=== PATIENT | female | born 1985 | race Caucasian/White ===

== ENCOUNTER 2016-05-16 22:54 | Emergency (ER) | payer MEDICAID ==
[2016-05-16 23:48] LABS: BASOPHILS 0.6 % (0.0-2.0); EOSINOPHILS 3.8 % (0-7); HEMATOCRIT 40.9 % (36.0-48.0); IMMATURE GRANULOCYTES 0.3 % (0-5); LYMPHOCYTES 34.8 % (15-50); MCH 34.7 pg (26.0-34.0); MCHC 34.2 g/dL (31.0-37.0); MCV 101.2 fL (80.0-100.0); MEAN PLATELET VOLUME 10.9 fL (7.4-10.4); MONOCYTES 11.4 % (2-11); NEUTROPHILS 49.1 % (40-80); PLATELET COUNT 163 10x3/uL (130-400); RBC 4.04 10x6/uL (4.00-5.40); RDW 14.4 % (11.5-14.5); WBC 6.2 10x3/uL (4.8-10.8)
[2016-05-16 23:52] LABS: HCG SERUM NEGATIVE (NEGATIVE)
== END 2016-05-17 02:00 | disposition home or self-care (01) ==
LOC: D.ER 22:54
PROVIDERS: Emergency Medicine
DX: R59.0 Localized enlarged lymph nodes (principal); F17.200 Nicotine dependence, unspecified, uncomplicated

== ENCOUNTER 2016-06-02 15:03 | Emergency (ER) | payer MEDICAID ==
[2016-06-02 15:35] LABS: APPEARANCE CLEAR (CLEAR); COLOR YELLOW (YELLOW)
[2016-06-02 15:36] LABS: BILIRUBIN NEGATIVE (NEGATIVE); GLUCOSE NEGATIVE (NEGATIVE); KETONE NEGATIVE (NEGATIVE); LEUKOCYTE ESTERASE NEGATIVE (NEGATIVE); NITRITE NEGATIVE (NEGATIVE); PROTEIN NEGATIVE (NEGATIVE); UROBILINOGEN NORMAL (NORMAL)
[2016-06-02 15:38] LABS: BASOPHILS 0.3 % (0-2); EOSINOPHILS 1.3 % (0-7); HEMATOCRIT 42.6 % (36.0-48.0); HEMOGLOBIN 14.9 g/dL (12-16); IMMATURE GRANULOCYTES 0.3 % (0-5); LYMPHOCYTES 16.1 % (15-50); MCH 35.2 pg (26.0-34.0); MCV 100.7 fL (80.0-100.0); MEAN PLATELET VOLUME 10.7 fL (7.4-10.4); MONOCYTES 6.8 % (2-11); NEUTROPHILS 75.2 % (40-80); PLATELET COUNT 160 10x3/uL (130-400); RBC 4.23 10x6/uL (4.00-5.40); RDW 14.2 % (11.5-14.5); WBC 10.5 10x3/uL (4.8-10.8)
[2016-06-02 15:52] LABS: ALBUMIN 3.5 g/dL (3.4-5.0); ALKALINE PHOSPHATASE 85 U/L (46-116); ALT (SGPT) 25 U/L (10-68); BILIRUBIN - TOTAL 0.26 mg/dL (0.2-1.3); CALC OSMOLALITY 272 mosm/kg (275-300); CALCIUM 8.8 mg/dL (8.5-10.1); CARBON DIOXIDE 27.4 mmol/L (21.0-32.0); CHLORIDE - SERUM 103 mmol/L (98-107); CREATININE - SERUM 0.7 mg/dL (0.6-1.3); GLUCOSE 96 mg/dL (74-106); POTASSIUM - SERUM 3.7 mmol/L (3.5-5.1); SODIUM 138 mmol/L (136-145); UREA NITROGEN 4 mg/dL (7-18); eGFR NON AFRICAN AMERICAN > 90 mL/min (90-120)
[2016-06-02 16:10] LABS: HCG SERUM NEGATIVE (NEGATIVE)
== END 2016-06-02 16:38 | disposition home or self-care (01) ==
LOC: D.ER 15:03
PROVIDERS: Emergency Medicine; Physician Assistant
DX: R10.2 Pelvic and perineal pain (principal); F17.200 Nicotine dependence, unspecified, uncomplicated

== ENCOUNTER 2016-09-14 21:41 | Emergency (ER) | payer MEDICAID ==
[2016-09-14 23:29] LABS: APPEARANCE CLEAR (CLEAR); BILIRUBIN NEGATIVE (NEGATIVE); COLOR STRAW (YELLOW); GLUCOSE NEGATIVE (NEGATIVE); KETONE NEGATIVE (NEGATIVE); LEUKOCYTE ESTERASE NEGATIVE (NEGATIVE); NITRITE NEGATIVE (NEGATIVE); PROTEIN NEGATIVE (NEGATIVE); SPECIFIC GRAVITY 1.005 (1.005-1.020); UROBILINOGEN NORMAL (NORMAL)
[2016-09-14 23:34] LABS: ALBUMIN 2.7 g/dL (3.4-5.0); ALKALINE PHOSPHATASE 76 U/L (46-116); ALT (SGPT) 20 U/L (10-68); CALC OSMOLALITY 280 mosm/kg (275-300); CALCIUM 8.1 mg/dL (8.5-10.1); CHLORIDE - SERUM 105 mmol/L (98-107); CREATININE - SERUM 0.6 mg/dL (0.6-1.3); GLUCOSE 90 mg/dL (74-106); PROTEIN - SERUM 5.6 g/dL (6.4-8.2); SODIUM 143 mmol/L (136-145); UREA NITROGEN 2 mg/dL (7-18); eGFR NON AFRICAN AMERICAN > 90 mL/min (90-120)
[2016-09-14 23:43] LABS: POTASSIUM - SERUM 2.7 mmol/L (3.5-5.1)
== END 2016-09-15 01:27 | disposition home or self-care (01) ==
LOC: D.ER 21:41
PROVIDERS: Family Medicine
DX: R60.0 Localized edema (principal); Z87.448 Personal history of other diseases of urinary system; E87.6 Hypokalemia; F17.200 Nicotine dependence, unspecified, uncomplicated

== ENCOUNTER 2017-03-15 15:01 | Emergency (ER) | payer SELFPAY ==
[2017-03-15 15:49] LABS: BASOPHILS 0.3 % (0-2); EOSINOPHILS 1.9 % (0-7); HEMATOCRIT 41.9 % (36.0-48.0); HEMOGLOBIN 14.6 g/dL (12-16); IMMATURE GRANULOCYTES 0.4 % (0-5); LYMPHOCYTES 23.1 % (15-50); MCH 35.4 pg (26.0-34.0); MCHC 34.8 g/dL (31.0-37.0); MCV 101.5 fL (80.0-100.0); MEAN PLATELET VOLUME 10.4 fL (7.4-10.4); MONOCYTES 7.7 % (2-11); NEUTROPHILS 66.6 % (40-80); PLATELET COUNT 181 10x3/uL (130-400); RBC 4.13 10x6/uL (4.00-5.40); RDW 13.7 % (11.5-14.5); WBC 9.9 10x3/uL (4.8-10.8)
[2017-03-15 17:11] LABS: ALBUMIN 3.8 g/dL (3.4-5.0); ALKALINE PHOSPHATASE 84 U/L (46-116); ALT (SGPT) 26 U/L (10-68); CALC OSMOLALITY 275 mosm/kg (275-300); CALCIUM 8.5 mg/dL (8.5-10.1); CARBON DIOXIDE 25.2 mmol/L (21.0-32.0); CHLORIDE - SERUM 105 mmol/L (98-107); CREATININE - SERUM 0.5 mg/dL (0.6-1.3); GLUCOSE 103 mg/dL (74-106); PROTEIN - SERUM 7.3 g/dL (6.4-8.2); SODIUM 140 mmol/L (136-145); UREA NITROGEN 4 mg/dL (7-18); eGFR NON AFRICAN AMERICAN > 90 mL/min (90-120)
[2017-03-15 17:33] LABS: HCG - QUANTITATIVE (MATERNAL) 1979 mIU/mL
[2017-03-15 20:19] LABS: AMYLASE - SERUM 22 U/L (25-115); HCG SERUM POSITIVE (NEGATIVE); LIPASE 179 U/L (73-393)
[2017-03-15 21:56] LABS: APPEARANCE CLEAR (CLEAR); BACTERIA MANY /hpf (NONE SEEN); BILIRUBIN NEGATIVE (NEGATIVE); COLOR YELLOW (YELLOW); EPITHELIAL CELLS OCC /hpf (0-5); GLUCOSE NEGATIVE (NEGATIVE); KETONE NEGATIVE (NEGATIVE); NITRITE POSITIVE (NEGATIVE); PROTEIN NEGATIVE (NEGATIVE); RED CELLS - URINE OCC /hpf (0-5); UROBILINOGEN NORMAL (NORMAL); WHITE CELLS - URINE 0-5 /hpf (0-5)
== END 2017-03-15 22:03 | disposition home or self-care (01) ==
LOC: D.ER 15:01
PROVIDERS: Family Medicine
DX: O26.891 Other specified pregnancy related conditions, first trimester (principal); Z3A.01 Less than 8 weeks gestation of pregnancy; R10.9 Unspecified abdominal pain

== ENCOUNTER 2017-06-07 02:30 | Emergency (ER) | payer MEDICAID ==
[2017-06-07 03:24] LABS: APPEARANCE CLEAR (CLEAR); BILIRUBIN NEGATIVE (NEGATIVE); COLOR YELLOW (YELLOW); GLUCOSE NEGATIVE (NEGATIVE); KETONE NEGATIVE (NEGATIVE); NITRITE NEGATIVE (NEGATIVE); PROTEIN NEGATIVE (NEGATIVE); SPECIFIC GRAVITY 1.005 (1.005-1.020); UROBILINOGEN NORMAL (NORMAL)
== END 2017-06-07 04:09 | disposition home or self-care (01) ==
LOC: D.ER 02:30
PROVIDERS: Family Medicine
DX: O26.892 Other specified pregnancy related conditions, second trimester (principal); Z3A.16 16 weeks gestation of pregnancy; M62.838 Other muscle spasm; S29.012A Strain of muscle and tendon of back wall of thorax, initial encounter; S21.90XA Unspecified open wound of unspecified part of thorax, initial encounter; X58.XXXA Exposure to other specified factors, initial encounter; Y93.9 Activity, unspecified; Y92.9 Unspecified place or not applicable; M54.6 Pain in thoracic spine

== ENCOUNTER 2017-09-25 02:44 | Outpatient (CLI) | payer MEDICAID ==
[2017-09-25 03:09] LABS: APPEARANCE CLEAR (CLEAR); BILIRUBIN NEGATIVE (NEGATIVE); COLOR YELLOW (YELLOW); GLUCOSE NEGATIVE (NEGATIVE); KETONE NEGATIVE (NEGATIVE); NITRITE NEGATIVE (NEGATIVE); PROTEIN NEGATIVE (NEGATIVE); UROBILINOGEN NORMAL (NORMAL)
[2017-10-24 09:45] VITALS: BMI 21.6
== END 2017-09-25 03:27 | disposition home or self-care (01) ==
LOC: D.LDO 02:44
PROVIDERS: Obstetrics & Gynecology
DX: O26.893 Other specified pregnancy related conditions, third trimester (principal); Z3A.32 32 weeks gestation of pregnancy

== ENCOUNTER → 2017-09-28 12:19 | Outpatient (CLI) | payer MEDICAID ==
[2017-10-24 09:45] VITALS: BMI 21.6
== END | disposition home or self-care (01) ==
LOC: D.LDO 12:19
DX: O36.5930 Maternal care for other known or suspected poor fetal growth, third trimester, not applicable or unspecified (principal); Z3A.33 33 weeks gestation of pregnancy

== ENCOUNTER → 2017-10-01 11:26 | Outpatient (CLI) | payer MEDICAID ==
[2017-10-01 13:03] LABS: UDS - AMPHET NEGATIVE QUAL (NEGATIVE); UDS - BARB NEGATIVE QUAL (NEGATIVE); UDS - BENZO NEGATIVE QUAL (NEGATIVE); UDS - COCAINE NEGATIVE QUAL (NEGATIVE); UDS - OPIATE NEGATIVE QUAL (NEGATIVE); UDS - PCP NEGATIVE QUAL (NEGATIVE); UDS - THC NEGATIVE QUAL (NEGATIVE)
[2017-10-01 13:05] LABS: APPEARANCE CLEAR (CLEAR); BILIRUBIN NEGATIVE (NEGATIVE); COLOR STRAW (YELLOW); GLUCOSE NEGATIVE (NEGATIVE); KETONE NEGATIVE (NEGATIVE); NITRITE NEGATIVE (NEGATIVE); PROTEIN NEGATIVE (NEGATIVE); UROBILINOGEN NORMAL (NORMAL)
[2017-10-05 10:24] LABS: CHLAMYDIA TRACHOMATIS, NAA Negative (Negative)
[2017-10-24 09:45] VITALS: BMI 21.6
== END | disposition home or self-care (01) ==
LOC: D.LDO 11:26
PROVIDERS: Obstetrics & Gynecology
DX: O36.5930 Maternal care for other known or suspected poor fetal growth, third trimester, not applicable or unspecified (principal); Z3A.33 33 weeks gestation of pregnancy

== ENCOUNTER → 2017-10-01 20:32 | Outpatient (CLI) | payer MEDICAID ==
[2017-10-24 09:45] VITALS: BMI 21.6
== END | disposition home or self-care (01) ==
LOC: D.LDO 20:32
DX: O26.893 Other specified pregnancy related conditions, third trimester (principal); Z3A.33 33 weeks gestation of pregnancy

== ENCOUNTER → 2017-10-04 15:05 | Outpatient (CLI) | payer MEDICAID ==
[2017-10-24 09:45] VITALS: BMI 21.6
== END | disposition home or self-care (01) ==
LOC: D.LDO 15:05
DX: O36.5930 Maternal care for other known or suspected poor fetal growth, third trimester, not applicable or unspecified (principal); Z3A.34 34 weeks gestation of pregnancy

== ENCOUNTER → 2017-10-07 12:16 | Outpatient (CLI) | payer MEDICAID ==
[2017-10-24 09:45] VITALS: BMI 21.6
== END | disposition home or self-care (01) ==
LOC: D.LDO 12:16
DX: O36.5930 Maternal care for other known or suspected poor fetal growth, third trimester, not applicable or unspecified (principal); Z3A.34 34 weeks gestation of pregnancy

== ENCOUNTER → 2017-10-11 15:02 | Outpatient (CLI) | payer MEDICAID ==
[2017-10-24 09:45] VITALS: BMI 21.6
== END | disposition home or self-care (01) ==
LOC: D.LDO 15:02
DX: O36.5930 Maternal care for other known or suspected poor fetal growth, third trimester, not applicable or unspecified (principal); Z3A.35 35 weeks gestation of pregnancy

== ENCOUNTER → 2017-10-12 17:27 | Outpatient (CLI) | payer MEDICAID ==
[2017-10-24 09:45] VITALS: BMI 21.6
== END | disposition home or self-care (01) ==
LOC: D.LDO 17:27
DX: O36.5930 Maternal care for other known or suspected poor fetal growth, third trimester, not applicable or unspecified (principal); Z3A.35 35 weeks gestation of pregnancy

== ENCOUNTER → 2017-10-14 14:07 | Outpatient (CLI) | payer MEDICAID ==
[2017-10-24 09:45] VITALS: BMI 21.6
== END | disposition home or self-care (01) ==
LOC: D.LDO 14:07
DX: O36.5930 Maternal care for other known or suspected poor fetal growth, third trimester, not applicable or unspecified (principal); Z3A.35 35 weeks gestation of pregnancy

== ENCOUNTER → 2017-10-18 15:45 | Outpatient (CLI) | payer MEDICAID ==
[2017-10-24 09:45] VITALS: BMI 21.6
== END | disposition home or self-care (01) ==
LOC: D.LDO 15:45
DX: O36.5930 Maternal care for other known or suspected poor fetal growth, third trimester, not applicable or unspecified (principal); Z3A.36 36 weeks gestation of pregnancy

== ENCOUNTER → 2017-10-19 14:04 | Outpatient (CLI) | payer MEDICAID ==
[2017-10-24 09:45] VITALS: BMI 21.6
== END | disposition home or self-care (01) ==
LOC: D.LDO 14:04
DX: O26.893 Other specified pregnancy related conditions, third trimester (principal); Z3A.36 36 weeks gestation of pregnancy

== ENCOUNTER 2017-10-24 09:16 | Inpatient (IN) | payer MEDICAID ==
[2017-10-24] VITALS (14 sets, daily range): BP systolic 108–150; BP diastolic 70–95; Ht 165.1 cm; Wt 59.0 kg
[~2017-10-24] VITALS: Ht 165.1 cm; Wt 59.0 kg
[2017-10-24 10:06] LABS: HEMATOCRIT 34.7 % (36.0-48.0); HEMOGLOBIN 11.9 g/dL (12-16); MCH 32.2 pg (26.0-34.0); MCHC 34.3 g/dL (31.0-37.0); MCV 93.8 fL (80.0-100.0); MEAN PLATELET VOLUME 12.5 fL (7.4-10.4); RBC 3.7 10x6/uL (4.00-5.40); RDW 13.6 % (11.5-14.5); WBC 10.5 10x3/uL (4.8-10.8)
[2017-10-24 20:40] LABS: BASOPHILS 0.2 % (0-2); EOSINOPHILS 0.8 % (0-7); HEMATOCRIT 32.6 % (36.0-48.0); HEMOGLOBIN 11.1 g/dL (12-16); IMMATURE GRANULOCYTES 0.4 % (0-5); LYMPHOCYTES 14.2 % (15-50); MCV 93.9 fL (80.0-100.0); MEAN PLATELET VOLUME 12.4 fL (7.4-10.4); MONOCYTES 4.7 % (2-11); NEUTROPHILS 79.7 % (40-80); PLATELET COUNT 105 10x3/uL (130-400); RBC 3.47 10x6/uL (4.00-5.40); RDW 13.5 % (11.5-14.5); WBC 9.7 10x3/uL (4.8-10.8)
[2017-10-25 00:56] VITALS: BP 113/62
[2017-10-25 01:55] VITALS: BP 103/60
[2017-10-25 02:55] VITALS: BP 104/64
[2017-10-25 06:57] LABS: BASOPHILS 0.1 % (0-2); EOSINOPHILS 1.1 % (0-7); HEMATOCRIT 30.9 % (36.0-48.0); HEMOGLOBIN 10.3 g/dL (12-16); IMMATURE GRANULOCYTES 0.2 % (0-5); LYMPHOCYTES 11.2 % (15-50); MCH 31.5 pg (26.0-34.0); MCHC 33.3 g/dL (31.0-37.0); MCV 94.5 fL (80.0-100.0); MONOCYTES 6.9 % (2-11); NEUTROPHILS 80.5 % (40-80); PLATELET COUNT 98 10x3/uL (130-400); RBC 3.27 10x6/uL (4.00-5.40); RDW 13.7 % (11.5-14.5)
[2017-10-25 07:23] VITALS: BP 104/68
[2017-10-25 08:06] LABS: PLATELET ESTIMATE DECREASED
[2017-10-25 08:20] LABS: RAPID PLASMA REAGIN Non Reactive (Non Reactive)
[2017-10-25 15:11] VITALS: BP 107/69
[2017-10-25 19:47] VITALS: BP 117/77
[2017-10-26 07:08] VITALS: BP 133/81
== END 2017-10-26 12:33 | disposition home or self-care (01) | DRG 765 ==
LOC: D.LD 09:16
PROVIDERS: Obstetrics & Gynecology
PROC: 0UL60ZZ Occlusion of Left Fallopian Tube, Open Approach (ICD-10-PCS; 2017-10-24)
PROC: 10P00YZ Removal of Other Device from Products of Conception, Open Approach (ICD-10-PCS; 2017-10-24)
PROC: 10D00Z1 Extraction of Products of Conception, Low, Open Approach (ICD-10-PCS; principal; 2017-10-24 12:00)
DX: O36.5930 Maternal care for other known or suspected poor fetal growth, third trimester, not applicable or unspecified (principal); O36.0930 Maternal care for other rhesus isoimmunization, third trimester, not applicable or unspecified; Z37.0 Single live birth; O99.334 Smoking (tobacco) complicating childbirth; Z3A.37 37 weeks gestation of pregnancy